=== PATIENT | female | born 1995 | race Hispanic/Latino ===

== ENCOUNTER 2020-03-04 15:22 | Emergency (ER) | payer OTHER ==
[2020-03-04 19:28] LABS: Urine Bacteria 20-50 /HPF (<20); Urine RBC <5 /HPF (NONE SEEN)
[2020-03-04 19:28] LABS: Absolute Lymphocytes (CBC) 2.5 K/uL (0.7-4.9); Basophils % 0.2 % (0-1.3); Hematocrit 41.1 % (36.0-45.0); Lymphocytes % 22.6 % (15.3-44.8); MPV 10.7 fL (7.6-11.3)
[2020-03-04 19:29] LABS: Protime INR 0.95
[2020-03-04 19:33] LABS: Urine Blood NEGATIVE (NEG); Urine Glucose TRACE (NEG); Urine Protein NEGATIVE (NEG)
[2020-03-04] MEDS ORDERED: NA CHLORIDE 0.9% 1,000 ML ONE (20:05)
--- NOTE | 2020-03-04 20:10 | RAD REPORT ---
EXAM DESCRIPTION: RAD - Chest Single View - 03/04/2020 8:04 pm CLINICAL HISTORY: syncope Chest pain. COMPARISON: No comparisons FINDINGS: Portable technique limits examination quality. The lungs are grossly clear. The heart is normal in size. No displaced fractures. IMPRESSION: No acute intrathoracic process suspected.
[2020-03-04 20:17] LABS: ALT/SGPT 19 U/L (12-78); AST/SGOT 15 U/L (15-37); Albumin 3.6 g/dL (3.4-5.0); Alkaline Phosphatase 73 U/L (45-117); BUN Blood Urea Nitrogen 8 mg/dL (7-18); Bicarbonate 26 mmol/L (21-32); Bilirubin Direct < 0.1 mg/dL (0-0.2); Bilirubin Total 0.3 mg/dL (0.2-1.0); Glucose Level 98 mg/dL (74-106); Magnesium 2.3 mg/dL (1.8-2.4); NT PRO-BNP 8 pg/mL (<125); Potassium 3.2 mmol/L (3.5-5.1); Protein, Total 7.1 g/dL (6.4-8.2); Sodium Level 139 mmol/L (136-145); Troponin (Emerg Dept Use Only) < 0.02 ng/mL (0.0-0.045)
--- NOTE | 2020-03-04 20:38 | ER ---
Nurse's Notes [facility] Name: Sydney Pierce Age: 24 yrs Sex: Female : 1995 Arrival Date: 03/04/2020 Time: 15:24 Bed 26 Private MD: Diagnosis: Syncope and collapse;Urinary tract infection, site not specified Presentation: 03/04 15:47 Chief complaint: Patient states: It started when I was driving, about an hour ago, my ca1 vision got really cloudy and heavy and I couldn't focus on both eyes. Got home 30 minutes ago, my whole L arm all the way down to my fingers got numb and then by that time that happen my L hand had pressure to the point that it was hurting of how numb it was. Then I got a headache and if I open my eyes, I get dizzy. No history of previous similar symptoms. A\T\0x4. VAN negative. 10 weeks. Coronavirus screen: Client denies travel out of the [place] in the last 14 days. At this time, the client does not indicate any symptoms associated with coronavirus-19. Ebola Screen: Patient negative for fever greater than or equal to 101.5 degrees Fahrenheit, and additional compatible Ebola Virus Disease symptoms Patient denies exposure to infectious person. Patient denies travel to an Ebola-affected area in the 21 days before illness onset. No symptoms or risks identified at this time. Initial Sepsis Screen: Does the patient meet any 2 criteria? No. Patient's initial sepsis screen is negative. Does the patient have a suspected source of infection? No. Patient's initial sepsis screen is negative. Risk Assessment: Do you want to hurt yourself or someone else? Patient reports no desire to harm self or others. Onset of symptoms was March 04, 2020 at 14:50. 15:47 Method Of Arrival: Wheelchair ca1 15:47 Acuity: MARSHA 3 ca1 Triage Assessment: 21:09 General: Appears in no apparent distress. Behavior is calm, cooperative. 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 - Social history:: Smoking status: Patient denies any tobacco usage or history of. Screenin:08 Abuse screen: Denies threats or abuse. Denies injuries from another. Nutritional iw screening: No deficits noted. Tuberculosis screening: No symptoms or risk factors identified. Fall Risk None identified. Assessment: 21:08 Reassessment: Patient appears in no apparent distress at this time. Patient and/or iw family updated on plan of care and expected duration. Pain level reassessed. Patient is alert, oriented x 3, equal unlabored respirations, skin warm/dry/pink. Patient states feeling better. Patient states symptoms have improved. Vital Signs: 15:47 BP 120 / 72; Pulse 87; Resp 16 S; Temp 97.7(TE); Pulse Ox 99% on R/A; Weight 58.97 kg ca1 (R); Height 5 ft. 5 in. (165.10 cm) (R); Pain 7/10; 15:47 Body Mass Index 21.63 (58.97 kg, 165.10 cm) ca1 ED Course: 15:24 Patient arrived in ED. as 15:52 Triage completed. ca1 15:53 Arm band placed on right wrist. ca1 18:33 Mejia Reinoso PA is PHCP. [facility] 18:33 Isaías Lugo MD is Attending Physician. [facility] 18:35 Mejia Reinoso PA is PHCP. [facility] 18:35 Isaías Lugo MD is Attending Physician. [facility] 18:50 Urine collected: clean catch specimen, cloudy. kj1 18:59 Monica Robertson, RN is Primary Nurse. dm5 19:15 Inserted saline lock: 22 gauge in right antecubital area, using aseptic technique. iw Blood collected. IV inserted by TAWNY, training technician. 21:09 No provider procedures requiring assistance completed. IV discontinued, intact, iw bleeding controlled, No redness/swelling at site. Pressure dressing applied. Administered Medications: 19:50 Drug: NS 0.9% 1000 ml Route: IV; Rate: 1 bolus; Site: right antecubital; ca1 Outcome: 20:36 Discharge ordered by . [facility] 21:09 Discharged to home ambulatory. iw 21:09 Condition: good 21:09 Discharge instructions given to patient, Instructed on discharge instructions, follow up and referral plans. medication usage, Demonstrated understanding of instructions, follow-up care, medications, Prescriptions given X 1. 21:09 Patient left the ED. iw Addendum: 03/10/2020 10:38 Addendum: Culture Results: Positive urine culture. Bacteria is resistant to, has s v intermediate sensitivity, or is not tested against prescribed antibiotics. Report given to VIKA for further evaluation and then to rn clinical review for follow up with patient. Phone call Attempt #1 left voicemail. Signatures: Monica Robertson, RN RN [email or web address] Sofia Spivey RN RN sv Mejia Reinoso PA PA jmm Martinez, Amelia as Williams, Irene RN ADALID Meenu Tejada RN RN ca1 Rin Andres kj1 Corrections: (The following items were deleted from the chart) 03/04 15:55 15:47 Chief complaint: Patient states: It started when I was driving, about an hour ca1 ago, my vision got really cloudy and heavy and I couldn't focus. Got home 30 minutes ago, my whole L arm all the way down to my fingers got numb and then by that time that happen my L hand had pressure to the point that it was hurting of how numb it was. Then I got a headache and if I open my eyes, I get dizzy. No history of previous similar symptoms. A\T\0x4. VAN negative. 10 weeks. ca1
--- NOTE | 2020-03-04 20:38 | EDPHYS ---
Physician Documentation [facility] Name: Sydney Pierce Age: 24 yrs Sex: Female : 1995 Arrival Date: 03/04/2020 Time: 15:24 Bed 26 Private MD: ED Physician Isaías Lugo HPI: 03/04 20:10 This 24 yrs old Female presents to ER via Wheelchair with complaints of jmm Dizziness, Headache. 20:10 The patient has experienced near-syncope, almost passed out, felt dizzy, felt faint. jmm Onset: The symptoms/episode began/occurred acutely, just prior to arrival. Duration: This was a single episode, that is still ongoing, but improving. The patient presents with feeling faint. This is a 24 year old female with no chronic medical conditions, currently 10 weeks that presents to the ED with complaints of near syncope which occurred when she was picking her sons up from school This occurred while the patient was in her car. Patient felt her vision close in. Patient states then feeling tingling in her left and right hand. Patient denies chest pain, sob, leg swelling, hemoptysis. Denies vaginal bleeding. 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 - Social history:: Smoking status: Patient denies any tobacco usage or history of. ROS: 20:10 Constitutional: Negative for fever, chills, and weight loss, Cardiovascular: Negative jmm for chest pain, palpitations, and edema. 20:10 Respiratory: Negative for shortness of breath, cough, wheezing, and pleuritic chest pain, Abdomen/GI: Negative for abdominal pain, nausea, vomiting, diarrhea, and constipation. 20:10 Respiratory: Positive for Negative for cough. 20:10 Neuro: Positive for near syncope. 20:10 All other systems are negative. Exam: 20:10 Constitutional: This is a well developed, well nourished patient who is awake, alert, jmm and in no acute distress. Head/Face: atraumatic. Eyes: EOMI, no conjunctival erythema appreciated ENT: Moist Mucus Membranes Neck: Trachea midline, Supple Chest/axilla: Normal chest wall appearance and motion. Cardiovascular: Regular rate and rhythm. No edema appreciated Respiratory: Normal respirations, no respiratory distress appreciated Abdomen/GI: Non distended, soft Back: Normal ROM Skin: General appearance color normal MS/ Extremity: Moves all extremities, no obvious deformities appreciated, no edema noted to the lower extremities Neuro: Awake and alert, normal gait Psych: Behavior is normal, Mood is normal, Patient is cooperative and pleasant Vital Signs: 15:47 BP 120 / 72; Pulse 87; Resp 16 S; Temp 97.7(TE); Pulse Ox 99% on R/A; Weight 58.97 kg ca1 (R); Height 5 ft. 5 in. (165.10 cm) (R); Pain 7/10; 15:47 Body Mass Index 21.63 (58.97 kg, 165.10 cm) ca1 MDM: 18:53 Patient medically screened. [facility] 20:33 Data reviewed: vital signs, nurses notes. Counseling: I had a detailed discussion with nelia the patient and/or guardian regarding: the historical points, exam findings, and any diagnostic results supporting the discharge/admit diagnosis, lab results, radiology results, the need for outpatient follow up, to return to the emergency department if symptoms worsen or persist or if there are any questions or concerns that arise at home. ED course: Patient is alert and non toxic in appearance in the ED. No signs of resp distress. I do not suspect PE. [place] syncope negative. Patient will be treated with oral abx and otherwise given strict return precautions. Patient understood and agrees with the plan of care. . 03/04 18:56 Order name: Urine Dipstick--Ancillary (enter results) [facility] 03/04 18:56 Order name: Urine --Ancillary (enter results) [facility] 03/04 19:02 Order name: Basic Metabolic Panel [facility] 03/04 19:02 Order name: CBC with Diff [facility] 03/04 19:02 Order name: LFT's [facility] 03/04 19:02 Order name: Magnesium [facility] 03/04 19:02 Order name: NT PRO-BNP [facility] 03/04 19:02 Order name: PT-INR [facility] 03/04 19:02 Order name: Troponin (emerg Dept Use Only) [facility] 03/04 19:03 Order name: Urine Microscopic Only [facility] 03/04 19:03 Order name: Urine Culture [facility] 03/04 19:28 Order name: Urine Microscopic Only; Complete Time: 19:32 [facility] 03/04 19:30 Order name: CBC with Automated Diff; Complete Time: 19:32 [facility] 03/04 19:30 Order name: Protime (+INR); Complete Time: 19:32 [facility] 03/04 19:02 Order name: XRAY Chest (1 view) [facility] 03/04 19:02 Order name: EKG; Complete Time: 19:03 [facility] 03/04 19:02 Order name: Cardiac monitoring; Complete Time: 19:48 [facility] 03/04 19:02 Order name: EKG - Nurse/Tech; Complete Time: 19:16 [facility] 03/04 19:02 Order name: IV Saline Lock; Complete Time: 19:16 [facility] 03/04 19:02 Order name: Labs collected and sent; Complete Time: 19:17 [facility] 03/04 19:02 Order name: O2 Per Protocol; Complete Time: 19:17 [facility] 03/04 19:33 Order name: Urine --Ancillary; Complete Time: 19:42 [facility] 03/04 19:33 Order name: Urine Dipstick-Ancillary; Complete Time: 19:43 [facility] 03/04 20:11 Order name: RAD; Complete Time: 20:14 [facility] 03/04 20:17 Order name: Basic Metabolic Panel; Complete Time: 20:31 [facility] 03/04 20:17 Order name: Liver (Hepatic) Function; Complete Time: 20:31 [facility] 03/04 20:17 Order name: Troponin (Emerg Dept Use Only); Complete Time: 20:31 [facility] 03/04 20:17 Order name: NT PRO-BNP; Complete Time: 20:31 [facility] 03/04 20:17 Order name: Magnesium; Complete Time: 20:31 [facility] 03/04 19:02 Order name: O2 Sat Monitoring; Complete Time: 19:17 [facility] Administered Medications: 19:50 Drug: NS 0.9% 1000 ml Route: IV; Rate: 1 bolus; Site: right antecubital; ca1 Disposition: 03/05 06:55 I agree with the assessment and plan of care. PA/ECHOCARDIOGRAPHER's history reviewed, patient kdr interviewed, and examined. 06:55 Co-signature as Attending Physician, Isaías Lugo MD. kdr Disposition: 03/04/20 20:36 Discharged to Home. Impression: Syncope and collapse, Urinary tract infection, site not specified. - Condition is Stable. - Discharge Instructions: Syncope, Urinary Tract Infection, Adult. - Prescriptions for Cephalexin 500 mg Oral Capsule - take 1 capsule by ORAL route every 8 hours for 10 days; 30 capsule. - Medication Reconciliation Form, Thank You Letter, Antibiotic Education, Prescription Opioid Use, School release form form. - Follow up: Private Physician; When: 1 - 2 days; Reason: Recheck today's complaints, Continuance of care, Re-evaluation by your physician. Signatures: Dispatcher [employer] EDMS Isaías Lugo MD MD kdr Mickail, Joel, PA PA jmm Williams, Irene, Meenu Millan RN, RN RN ca1 Corrections: (The following items were deleted from the chart) 03/04 21:09 20:36 03/04/2020 20:36 Discharged to Home. Impression: Syncope and collapse; Urinary iw tract infection, site not specified. Condition is Stable. Forms are Medication Reconciliation Form, Thank You Letter, Antibiotic Education, Prescription Opioid Use. Follow up: Private Physician; When: 1 - 2 days; Reason: Recheck today's complaints, Continuance of care, Re-evaluation by your physician. nelia
--- NOTE | 2020-03-05 07:54 | EKG ---
Test Date: 2020-03-04 Test Time: 19:11:47 [employer] Tr[employer] Hand: QUAN MEASUREMENT RESULTS: Intervals: Rate: 71 SC: 118 QRSD: 86 QT: 398 QTc: [address]: P: 43 SC: 118 QRS: 74 T: 54 INTERPRETIVE STATEMENTS: Normal sinus rhythm with sinus arrhythmia Normal ECG No previous ECG available for comparison Electronically Signed On 03-05-20 07:49:53 LOGGING SPECIALIST by Angel Balderas
== END 2020-03-04 21:09 | disposition home or self-care (01) ==
LOC: ER 15:22
DX: O99.891 Other specified diseases and conditions complicating pregnancy (principal); R55 Syncope and collapse; O23.41 Unspecified infection of urinary tract in pregnancy, first trimester; Z3A.10 10 weeks gestation of pregnancy
CPT/HCPCS: 93005; 87088; 85025; 87086; 80048; 36415; 83735; 81025; 85610; 80076; 87077; 87186; 84484; 83880; 71045; 99284; J7030; 81003; 81015